=== PATIENT | male | born 1945 | race Caucasian/White ===

== ENCOUNTER 2021-02-02 08:50 | Outpatient (CLI) | payer MEDICARE, BC ==
[2021-02-02] MEDS ORDERED: OMNIPAQUE 350 MG/ML, 150 ML BOTTLE ONE (13:58)
== END 2021-02-02 23:59 | disposition home or self-care (01) ==
LOC: CFH 08:50 → RAD 23:59
PROVIDERS: ATTEND Internal Medicine Cardiovascular Disease
DX: Z01.818 Encounter for other preprocedural examination (principal); I48.91 Unspecified atrial fibrillation
CPT/HCPCS: 71046; 75572; 82565; Q9967

== ENCOUNTER 2021-02-04 06:08 | Observation (INO) | payer MEDICARE, BC ==
[~2021-02-04] VITALS: Ht 180.3 cm; Wt 96.7 kg
[2021-02-04] MEDS ORDERED: MIDAZOLAM 1 MG/ML, 2ML ONE (07:15)
[2021-02-04] MEDS ORDERED: FENTANYL PF 250 MCG/5ML ONE (07:15)
[2021-02-04 07:24] VITALS: BP 130/86
[2021-02-04] MEDS ORDERED: RIVA20TA PO (07:24)
[2021-02-04] MEDS ORDERED: DILT120C80 PO (07:24)
[2021-02-04] MEDS ORDERED: PLEASE ENTER HEIGHT AND WEIGHT MC SCH (07:30)
[2021-02-04] MEDS ORDERED: SODIUM CHLORIDE 0.9% 1,000 ML IV SCH (07:30)
[2021-02-04 07:44] LABS: BASOPHILS % (AUTO) 1 % (0-1); EOSINOPHILS % (AUTO) 3 % (1-7); LYMPHOCYTES % (AUTO) 24 % (22-44); MEAN CORPUSCULAR HEMOGLOBIN 32.3 pg (27.5-34.5); MEAN CORPUSCULAR HGB CONC 34.3 g/dL (33.2-36.2); MEAN PLATELET VOLUME 8.4 fL (7.4-10.4); MONOCYTES % (AUTO) 10 % (2-9); NEUTROPHILS % (AUTO) 63 % (42-75); PLATELET COUNT 156 x10^3/uL (130-400); RED BLOOD COUNT 4.66 x10^6/uL (4.38-5.82); RED CELL DISTRIBUTION WIDTH 13.3 % (9.4-14.8)
[2021-02-04 07:55] LABS: ALBUMIN 3.5 g/dL (3.4-5.0); ANION GAP 6 mmol/L (5-15); CALCIUM 8.6 mg/dL (8.5-10.1); CHLORIDE 111 mmol/L (98-107)
[2021-02-04 07:58] LABS: INTERNATIONAL NORMALIZED RATIO 1.04 (0.93-1.1); PROTHROMBIN TIME 11.1 Seconds (9.6-11.5)
[2021-02-04 08:00] LABS: ALANINE AMINOTRANSFERASE 23 U/L (12-78); ALKALINE PHOSPHATASE 89 U/L (45-117); BILIRUBIN,TOTAL 0.8 mg/dL (0.2-1.0); CREATININE 0.76 mg/dL (0.7-1.3); TOTAL PROTEIN 6.6 g/dL (6.4-8.2)
[2021-02-04] MEDS ORDERED: LIDOCAINE 1%, 20ML ONE (08:37)
[2021-02-04] MEDS ORDERED: HEPARIN 1,000 UNITS/ML, 10ML ONE ×2 (08:53)
[2021-02-04] MEDS ORDERED: PROPOFOL 10 MG/ML, 20ML ONE (08:53)
[2021-02-04] MEDS ORDERED: SUCCINYLCHOLINE 20 MG/ML, 10ML ONE (08:53)
[2021-02-04] MEDS ORDERED: ROCURONIUM 10MG/ML,5ML ONE (08:53)
[2021-02-04] MEDS ORDERED: ISOPROTERENOL 0.2MG/ML, 5ML ONE (08:56)
[2021-02-04] MEDS ORDERED: ONDANSETRON 2MG/ML, 2ML ONE (09:01)
[2021-02-04] MEDS ORDERED: DEXAMETHASONE 4 MG/ML, 1ML ONE (09:01)
[2021-02-04] MEDS ORDERED: PROMETHAZINE 25 MG/ML, 1ML IVPush PRN (09:30)
[2021-02-04] MEDS ORDERED: EPHEDRINE 50 MG/ML, 1ML IVPush PRN (09:30)
[2021-02-04] MEDS ORDERED: MEPERIDINE/PF 25MG/0.5ML IVPush PRN (09:30)
[2021-02-04] MEDS ORDERED: EPHEDRINE 50 MG/ML, 1ML IM PRN (09:30)
[2021-02-04] MEDS ORDERED: OXYcodone 5 MG/5 ML ORAL.SOL UDC PO PRN (09:30)
[2021-02-04] MEDS ORDERED: ONDANSETRON 2MG/ML, 2ML IVPush PRN ×2 (09:30→11:30)
[2021-02-04] MEDS ORDERED: ACETAMINOPHEN 325 MG TABLET PO PRN ×2 (09:30→11:30)
[2021-02-04] MEDS ORDERED: morphine SULFATE 10 MG/ML, 1ML IVPush PRN (09:30)
[2021-02-04] MEDS ORDERED: LABETALOL 5MG/ML, 20ML IV PRN (09:30)
[2021-02-04] MEDS ORDERED: DIPHENHYDRAMINE 50 MG/ML, 1ML IVPush PRN (09:30)
[2021-02-04] MEDS ORDERED: DIAZEPAM 5 MG/ML, 2ML IVPush PRN (09:30)
[2021-02-04] MEDS ORDERED: FENTANYL PF 100 MCG/2ML IV PRN (09:30)
[2021-02-04] MEDS ORDERED: PHENYLEPHRINE 10 MG/ML ONE (10:05)
[2021-02-04] MEDS ORDERED: RIVAROXABAN 20 MG TABLET PO SCH (11:30)
[2021-02-04] MEDS ORDERED: ZOLPIDEM 5MG TABLET PO PRN (11:30)
[2021-02-04] MEDS: RIVAROXABAN 20 MG TABLET PO SCH (11:30)
[2021-02-04 12:41] VITALS: BP 113/75
[2021-02-04 14:20] VITALS: BP 118/76
[2021-02-04 18:50] VITALS: BP 99/60
[2021-02-04] MEDS: COLCHICINE 0.6 MG CAPSULE PO SCH (21:10)
[2021-02-05 00:18] VITALS: BP 107/65
[2021-02-05 07:45] VITALS: BP 101/88
[2021-02-05] MEDS: COLCHICINE 0.6 MG CAPSULE PO SCH (08:05)
[2021-02-05] MEDS: RIVAROXABAN 20 MG TABLET PO SCH (08:05)
[2021-02-05] MEDS ORDERED: DILTIAZEM 120 MG CAP.ER.24H PO SCH (09:00)
[2021-02-05] MEDS ORDERED: ACET325T26 PO (09:04)
[2021-02-05] MEDS ORDERED: COLC0.6C3 PO (09:06)
[2021-02-05] MEDS ORDERED: KETOROLAC 30 MG/1 ML IVPush ONE (09:30)
[2021-02-05 12:59] VITALS: BP 107/68
== END 2021-02-05 16:52 | disposition home or self-care (01) ==
LOC: CACL 06:08 → ORIP 11:11 → 5SO 12:38
PROVIDERS: ADMIT Internal Medicine Cardiovascular Disease; ATTEND Internal Medicine Cardiovascular Disease
DX: I48.91 Unspecified atrial fibrillation (principal); Z20.822 Contact with and (suspected) exposure to COVID-19; I48.92 Unspecified atrial flutter; I47.1 Supraventricular tachycardia; I10 Essential (primary) hypertension; F10.10 Alcohol abuse, uncomplicated; Z79.899 Other long term (current) drug therapy
CPT/HCPCS: 36415; 80053; 85025; 85347; 85610; 85730; 93005; 93306; 93312; 93321; 93325; 93356; 93613; 93655; 93656; 93657; 93662; 96374; C1730; C1732; C1759; C1766; C1893; C1894; G0378; J0330; J1100; J1644; J1885; J2250; J2370; J2405; J2704; J3010; J3490; U0003; U0005